=== PATIENT | male | born 1995 | race American Indian/Alaskan Native ===

== ENCOUNTER 2017-11-01 18:15 | Emergency (ER) | payer BC, OTHER ==
[2017-11-01 18:26] VITALS: BP 143/90
[2017-11-01 18:44] LABS: Bilirubin,Urine NEG (Negative); Blood,Urine NEG (Negative); Color,Urine Yellow (Yellow); Mucus,Urine FEW /HPF; Protein,Urine <15 mg/dL mg/dL (Negative)
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
[2017-11-01] MEDS ORDERED: ROCEPHIN IM ONE (20:11)
[2017-11-01] MEDS ORDERED: XYLOCAINE 1% MPF 5 mL INFILTRATI ONE (20:11)
[2017-11-01] MEDS ORDERED: ZITHROMAX PO ONE (20:11)
[2017-11-01] MEDS ORDERED: FLAGYL PO ONE (20:12)
== END 2017-11-01 20:53 | disposition home or self-care (01) ==
LOC: ED 18:15
DX: N39.0 Urinary tract infection, site not specified (principal); F17.200 Nicotine dependence, unspecified, uncomplicated
CPT/HCPCS: 81001; 87086; 96372; 99283; J0696